=== PATIENT | female | born 1990 | race Caucasian/White ===

== ENCOUNTER 2017-07-19 05:30 | Emergency (ER) | payer SELFPAY ==
[~2017-07-19] VITALS: Ht 180.3 cm; Wt 67.3 kg
[2017-07-19 05:45] VITALS: Ht 180.3 cm; Wt 67.3 kg
[2017-07-19 06:19] VITALS: BP 138/80
== END 2017-07-19 06:19 | disposition home or self-care (01) ==
LOC: ED 05:30
DX: K04.7 Periapical abscess without sinus (principal); F17.210 Nicotine dependence, cigarettes, uncomplicated; Z88.2 Allergy status to sulfonamides